=== PATIENT | female | born 1985 | race Caucasian/White ===

== ENCOUNTER → 2016-07-21 | Outpatient (CLI) | payer OTHER | END | disposition home or self-care (01) | LOC: LABWHC1 15:10 | PROVIDERS: ATTEND Family Medicine | DX: E72.12 Methylenetetrahydrofolate reductase deficiency (principal); E53.9 Vitamin B deficiency, unspecified; E83.42 Hypomagnesemia; K52.89 Other specified noninfective gastroenteritis and colitis; K52.29 Other allergic and dietetic gastroenteritis and colitis; R11.0 Nausea; R53.83 Other fatigue | CPT/HCPCS: 36415; 84439; 84443; 84481 ==

== ENCOUNTER → 2017-09-19 | Outpatient (CLI) | payer OTHER ==
[2017-09-19 12:34] LABS: Basophils % (A) 0 %; Eosinophils # (A) 0.1 k/uL (0-0.7); Eosinophils % (A) 3 %; HCT 40.9 % (34.0-46.0); HGB 13.2 gm/dL (11.4-16.0); Lymphocytes # (A) 1.3 k/uL (1.0-4.8); Lymphocytes % (A) 29 %; MCH 29.4 pg (25.0-35.0); MCHC 32.4 g/dL (31.0-37.0); MCV 90.8 fL (80.0-100.0); Mean Platelet Volume 8.8; Monocytes # (A) 0.3 k/uL (0-1.0); Monocytes % (A) 6 %; Neutrophils # (A) 2.8 k/uL (1.3-7.7); Neutrophils % (A) 60 %; Platelet Count 210 k/uL (150-450); RBC 4.51 m/uL (3.80-5.40); RDW 13.6 % (11.5-15.5); WBC 4.6 k/uL (3.8-10.6)
[2017-09-19 12:40] LABS: ALT 17 U/L (9-52); AST 17 U/L (14-36); Albumin 4.2 g/dL (3.5-5.0); Alkaline Phosphatase 44 U/L (38-126); Anion Gap 10 mmol/L; Blood Urea Nitrogen 10 mg/dL (7-17); C Reactive Protein <5.0 mg/L (<10.0); Calcium 9.4 mg/dL (8.4-10.2); Carbon Dioxide 30 mmol/L (22-30); Chloride 105 mmol/L (98-107); Glucose 93 mg/dL (74-99); Potassium 4.1 mmol/L (3.5-5.1); Sodium 145 mmol/L (137-145); Total Bilirubin 0.2 mg/dL (0.2-1.3); Total Protein 6.7 g/dL (6.3-8.2)
[2017-09-19 12:54] LABS: T4, Free (Free Thyroxine) 1.03 ng/dL (0.78-2.19)
[2017-09-19 13:12] LABS: Erythrocyte Sedimentation Rate 2 mm/hr (0-20)
[2017-09-19 15:56] LABS: Vitamin D 25 Hydroxy 67.2 ng/mL (30.0-100.0)
[2017-09-19 16:44] LABS: Hepatitis B Core IgM Non-Reactive (Non-Reactive); Hepatitis C IgG Antibody Non-Reactive (Non-Reactive)
== END | disposition home or self-care (01) ==
LOC: LABWHC1 11:53
PROVIDERS: ATTEND Internal Medicine Rheumatology
DX: R10.9 Unspecified abdominal pain (principal); R53.82 Chronic fatigue, unspecified; R00.2 Palpitations; R11.0 Nausea
CPT/HCPCS: 36415; 80053; 82306; 82607; 84439; 84443; 84481; 85025; 85652; 86038; 86140; 86705; 86803; 87340

== ENCOUNTER → 2017-09-21 | Outpatient (CLI) | payer OTHER ==
--- NOTE | 2017-09-22 07:20 | US ---
EXAMINATION TYPE: US thyroid st tissue head/neck DATE OF EXAM: 09/21/2017 COMPARISON: NONE CLINICAL HISTORY: E01.[address] felt possible nodule right lobe GLAND SIZE: Right Lobe: 5.3 x 1.4 x 1.5 cm Overall Parenchyma: homogenous Left Lobe: 4.9 x 1.0 x 1.6 cm Overall Parenchyma: homogeneous Isthmus Thickness: 0.2 cm NODULES RIGHT: # of nodules measured on right: 0 LEFT: # of nodules measured on left: 0 ISTHMUS: # of nodules measured in the isthmus: 0 Bilateral neck scanned, no evidence of lymphadenopathy. normal thyroid ultrasound IMPRESSION: No distinct nodule appreciated. Thyroid lobes are mildly prominent in size.
== END | disposition home or self-care (01) ==
LOC: RADUSWWP 16:47
PROVIDERS: ATTEND Internal Medicine Rheumatology
DX: E01.0 Iodine-deficiency related diffuse (endemic) goiter (principal)
CPT/HCPCS: 76536

== ENCOUNTER → 2018-07-26 | Outpatient (CLI) | payer OTHER ==
--- NOTE | 2018-07-30 09:00 | USB ---
History: Family history of breast cancer in paternal grandmother. Physical Findings: Nurse Summary: Nurse did not find any significant physical abnormalities on exam. US Breast BILAT Bilateral complete breast ultrasound includes all four quadrants, the retroareolar region and axilla. Finding demonstrates on the right breast a 8 x 3 x 5 mm cystis lesion at 12 o'clock, a 1.8 x 6 x 1.6 mm cystic cluster at 10 o'clock and a 9 x 5 x 6 mm cystic cluster at 10 o'clock. On the left breast at the 12 o'clock positions a 7 x 3 x 5 mm cystic lesion is seen. Multiple cystic areas visualized. These results were verbally communicated with the patient and result sheet given to the patient on 07/26/18. ASSESSMENT: Benign, BI-RAD 2 RECOMMENDATION: Clinical management. Routine screening mammogram of both breasts at age 40.
== END | disposition home or self-care (01) ==
LOC: RADUSWWP 08:56
PROVIDERS: ATTEND Obstetrics & Gynecology
DX: N64.4 Mastodynia (principal); N63.10 Unspecified lump in the right breast, unspecified quadrant; N63.20 Unspecified lump in the left breast, unspecified quadrant

== ENCOUNTER → 2018-09-21 | Outpatient (CLI) | payer OTHER ==
--- NOTE | 2018-09-21 12:19 | US ---
EXAMINATION TYPE: US lower ext pseudo artery RT DATE OF EXAM: 09/21/2018 COMPARISON: NONE CLINICAL HISTORY: I72.4 Aneurysm of artery of lower extremity. EXAM PERFORMED: Grayscale and color Doppler duplex imaging performed of the groin, post cardiac justin ter to assess for pseudoaneurysm. SIDE PERFORMED: right Color and Waveform Doppler performed to assess for the presence of pseudoaneurysm; Hypoechoic area superior to puncture site measures 1.6 x 0.7 x 1.7 cm, probable hematoma. Small foca l outpouching of the common femoral artery just deep to the patient's possible abnormality on page 13 /16 is seen measuring less than 1 cm. This has turbulent flow suggesting a small pseudoaneurysm at th e puncture site. IMPRESSION: Small pseudoaneurysm measuring less than 1 cm at the puncture site deep to a 1.6 cm mixed echogenicit y probable hematoma.
== END | disposition home or self-care (01) ==
LOC: RADUSWWP 11:21
PROVIDERS: ATTEND Internal Medicine
DX: I72.4 Aneurysm of artery of lower extremity (principal)
CPT/HCPCS: 93975